=== PATIENT | female | born 1955 | race Caucasian/White ===

== ENCOUNTER 2018-05-11 06:45 | Inpatient (IN) | payer BC ==
--- NOTE | 2018-05-11 07:04 | EDPHY ---
H & P Stated Complaint: generalized skin rash,"red dot w/nenana aroun,"chopping bushes in the yard" Time Seen by Provider: 05/11/18 07:04 - Personal History Current Tetanus Diphtheria and Acellular Pertussis (TDAP): No - Medical/Surgical History Hx Asthma: No Hx Chronic Respiratory Disease: No Hx Diabetes: No Hx Cardiac Disease: No Hx Renal Disease: No Hx Cirrhosis: No Hx Alcoholism: No Hx HIV/AIDS: No Hx Splenectomy or Spleen Trauma: No Other PMH: HTN - Social History Smoking Status: Never smoked Constitutional: Initial Vital Signs Temperature (C) 36.6 C 05/11/18 06:48 Heart Rate 110 H 05/11/18 06:48 Respiratory Rate 19 05/11/18 06:48 Blood Pressure 201/76 H 05/11/18 06:48 O2 Sat (%) 95 05/11/18 06:48 O2 Delivery Mode Room Air Allergies/Adverse Reactions: peanut Allergy (Verified 05/11/18 06:51) soy Allergy (Verified 05/11/18 06:51) Medical Decision Making - Diagnostics Imaging Results: Imaging Impressions Extremity Venous Study 05/11/18 07:14 Impression: Nonvisualization of the peroneal veins with no visible deep vein thrombosis. Findings discussed with Eran Saravia MD 05/11/2018 at 830. ED Course/Re-evaluation: CHIEF COMPLAINT: Rash HISTORY OF PRESENT ILLNESS: The patient is a 62 y/o female complaining of a global rash, slow onset over the last week. Earlier this week, around Saturday or Saturday, she noticed a bruise on her left lower calf. She developed a rash encompassing the entirety of her left lower leg on , 3 days ago. Slowly the rash spread, until this morning, when she awoke, she realized it was encompassing most of her body. She reports the rash is itchy. She denies any facial swelling, difficulty breathing, fever, or other associated symptoms. She notes one red spot with a white nenana around it that may be a bite or sting. REVIEW OF SYSTEMS: A 10 point review of systems was performed and is negative with the exception of the elements mentioned in the history of present illness. PHYSICAL EXAM: HR, BP, O2 Sat, RR. Temp noted General Appearance: Alert, well hydrated, appropriate. Head: Atraumatic without scalp tenderness or obvious injury Nose: Atraumatic, no rhinorrhea, clear. Throat: There is no erythema or exudates, no lesions, normal tonsils, mucus membranes moist. Neck: Supple, nontender, no lymphadenopathy. Respiratory: No retractions, no distress, no wheezes, and no accessory muscle use. Lungs are clear to auscultation bilaterally. Cardiovascular: Regular rate and rhythm, no murmurs, rubs, or gallops. Bilateral carotid, radial, dorsalis pedis, and posterior tibial pulses intact. Good capillary refill all extremities. Gastrointestinal: Abdomen is soft, nontender, non-distended, no masses, no rebound, no guarding, no peritoneal signs. Musculoskeletal: Normal active ROM of all extremities, atraumatic. Neurological: Alert, appropriate, and interactive. Skin: Light red maculopapular regions that branch freely cover the abdomen, chest, back, neck, jaw, upper right leg, and sporadically on the arms bilaterally and right leg. The lower right leg is completely encompassed by a cellulitic, fiery red rash. The lower right leg is hard and warm to the touch. On the lateral side of the right lower leg, where her bruise was, is a scabbed, infected appearing lesion. Past medical history: Hypertension Past surgical history: Denies Family history: Non-contributory Social history: Lives in [place], PCP: Dr. Floresita Fleming, nonsmoker DIAGNOSTICS/PROCEDURES/CRITICAL CARE TIME: Study: Ultrasound of the left lower leg Indication: Hard, red, and painful lower left leg Results: US scan of the body parts was obtained. The results of the study are normal. The study was read by the radiologist, Dr. Rey. I viewed the images myself on the PACS system. DIFFERENTIAL DIAGNOSIS: The differential diagnosis for this patient's rash included cellulitis, allergic reaction, DVT, and angioedema. MEDICAL DECISION MAKING: The patient presents with a rash. Her left lower leg is swollen and completely encompassed by a cellulitic, fiery red rash. There is a lesion that appears scabbed and possibly infected on the lateral side of the calf. She reports this was a bruise but is unsure how she received it or when it transition to a scab. The calf is warm and hard to the touch. Her upper right leg, abdomen, chest, back, neck, and more moderately her arms bilaterally , right leg, and jaw are covered in light red maculopapular regions that micky freely. Plan for iSTAT, CBC, basic metabolic panel, ABG, coagulation panel, bilirubin, blood cultures, and ultrasound of the lower left leg to evaluate infectious causes and DVT possibilities. 1g Vancomycin, 40mg Pepcid, 125mg solumedrol, and 50mg Benadryl. 8:00 AM - Her blood glucose is in the mid 300s, indicating she may be an undiagnosed diabetic, putting her at further risk for infection. 8:30 AM - Her ultrasound is negative for DVT. Likely, the lower left leg swelling and redness are due to a cellulitic infection. I spoke with her regarding admission and she reluctantly agreed. 8:45 AM - I spoke with the hospitalist service regarding admission for this patient. Dr. Ji will be the admitting physician and the patient will go to Med-Surg. - Data Points Laboratory Results: Laboratory Results 05/11/18 07:10 05/11/18 07:10 05/11/18 05/11/18 05/11/18 07:27 07:10 07:10 WBC 7.59 10^3/uL 10^3/uL (3.80-9.50) RBC 5.60 10^6/uL H 10^6/uL (4.18-5.33) Hgb 17.1 g/dL H g/dL (12.6-16.3) POC Hgb 18.4 gm/dL H gm/dL (12.6-16.3) Hct 49.4 % H % (38.0-47.0) POC Hct 54 % H % (38-47) MCV 88.2 fL fL (81.5-99.8) MCH 30.5 pg pg (27.9-34.1) MCHC 34.6 g/dL g/dL (32.4-36.7) RDW 12.3 % % (11.5-15.2) Plt Count 178 10^3/uL 10^3/uL (150-400) MPV 13.0 fL H fL (8.7-11.7) Neut % (Auto) 56.1 % % (39.3-74.2) Lymph % (Auto) 26.9 % % (15.0-45.0) [place] % (Auto) 6.5 % % (4.5-13.0) Eos % (Auto) 10.1 % H % (0.6-7.6) Baso % (Auto) 0.3 % % (0.3-1.7) Nucleat RBC Rel Count 0.0 % % (0.0-0.2) Absolute Neuts (auto) 4.26 10^3/uL 10^3/uL (1.70-6.50) Absolute Lymphs (auto) 2.04 10^3/uL 10^3/uL (1.00-3.00) Absolute Monos (auto) 0.49 10^3/uL 10^3/uL (0.30-0.80) Absolute Eos (auto) 0.77 10^3/uL H 10^3/uL (0.03-0.40) Absolute Basos (auto) 0.02 10^3/uL 10^3/uL (0.02-0.10) Absolute Nucleated RBC 0.00 10^3/uL 10^3/uL (0-0.01) Immature Gran % 0.1 % % (0.0-1.1) Immature Gran # 0.01 10^3/uL 10^3/uL (0.00-0.10) PT 12.9 SEC SEC (12.0-15.0) INR 0.95 (0.83-1.16) APTT 23.3 SEC SEC (23.0-38.0) VBG Lactic Acid POC Sodium 135 mEq/L mEq/L (135-145) Sodium POC Potassium 3.5 mEq/L mEq/L (3.3-5.0) Potassium POC Chloride 97 mEq/L mEq/L (97-110) Chloride Carbon Dioxide Anion Gap POC BUN 24 mg/dL H mg/dL (7-23) BUN Creatinine POC Creatinine 0.8 mg/dL mg/dL (0.6-1.0) Estimated GFR Glucose POC Glucose 363 mg/dL H mg/dL (70-100) Calcium Total Bilirubin 05/11/18 05/11/18 07:10 07:10 WBC RBC Hgb POC Hgb Hct POC Hct MCV MCH MCHC RDW Plt Count MPV Neut % (Auto) Lymph % (Auto) [place] % (Auto) Eos % (Auto) Baso % (Auto) Nucleat RBC Rel Count Absolute Neuts (auto) Absolute Lymphs (auto) Absolute Monos (auto) Absolute Eos (auto) Absolute Basos (auto) Absolute Nucleated RBC Immature Gran % Immature Gran # PT INR APTT VBG Lactic Acid 1.7 mmol/L mmol/L (0.7-2.1) POC Sodium Sodium 133 mEq/L L mEq/L (135-145) POC Potassium Potassium 3.8 mEq/L mEq/L (3.3-5.0) POC Chloride Chloride 99 mEq/L mEq/L (97-110) Carbon Dioxide 22 mEq/l mEq/l (22-31) Anion Gap 12 mEq/L mEq/L (8-16) POC BUN BUN 23 mg/dL mg/dL (7-23) Creatinine 0.8 mg/dL mg/dL (0.6-1.0) POC Creatinine Estimated GFR > 60 Glucose 340 mg/dL H mg/dL (70-100) POC Glucose Calcium 9.3 mg/dL mg/dL (8.5-10.4) Total Bilirubin 0.6 mg/dL mg/dL (0.1-1.4) Medications Given: Discontinued Medications Diphenhydramine HCl (Benadryl Injection) 50 mg IVP EDNOW ONE Stop: 05/11/18 07:13 Last Admin: 05/11/18 07:55 Dose: 50 mg Famotidine (Pepcid) 40 mg IVP EDNOW ONE Stop: 05/11/18 07:13 Last Admin: 05/11/18 07:58 Dose: 40 mg Vancomycin/Sodium Chloride (Vancomycin 1 Gm (Premix)) 250 mls @ 250 mls/hr IV EDNOW ONE PRN Reason: Protocol Stop: 05/11/18 08:12 Last Admin: 05/11/18 07:58 Dose: 250 mls Methylprednisolone Sodium Succinate (Solu-Medrol) 125 mg IVP EDNOW ONE Stop: 05/11/18 07:13 Last Admin: 05/11/18 07:54 Dose: 125 mg Point of Care Test Results: Chemistry 05/11/18 07:27 POC Sodium 135 mEq/L mEq/L (135-145) POC Potassium 3.5 mEq/L mEq/L (3.3-5.0) POC Chloride 97 mEq/L mEq/L (97-110) POC BUN 24 mg/dL H mg/dL (7-23) POC Creatinine 0.8 mg/dL mg/dL (0.6-1.0) POC Glucose 363 mg/dL H mg/dL (70-100) ISTAT H&H 05/11/18 07:27 POC Hgb 18.4 gm/dL H gm/dL (12.6-16.3) POC Hct 54 % H % (38-47) Departure - Departure Disposition: [facility] Inpatient Acute Clinical Impression: Newly diagnosed diabetes, Rash Cellulitis Qualifiers: Site of cellulitis: extremity Site of cellulitis of extremity: lower extremity Laterality: left Qualified Code(s): L03.116 - Cellulitis of left lower limb Condition: Fair Referrals: FLORESITA FLEMING [Primary Care Provider] - As per Instructions Report Scribed for: Eran Saravia Report Scribed by: Loan Guillen Date of Report: 05/11/18 Time of Report: 07:51
[2018-05-11] MEDS ORDERED: methylPREDNISolone SOD SUCC 125 MG/2 ML VIAL IVP ONE (07:12)
[2018-05-11] MEDS ORDERED: FAMOTIDINE 20 MG/2 ML SDV IVP ONE (07:12)
[2018-05-11] MEDS ORDERED: VANCOMYCIN HCL/NORMAL SALINE 250 ML IV ONE (07:13)
[2018-05-11 07:31] LABS: PLATELET COUNT 178 10^3/uL (150-400)
[2018-05-11 07:44] LABS: INR 0.95 (0.83-1.16); PROTIME(PATIENT) 12.9 SEC (12.0-15.0)
[2018-05-11] MEDS ORDERED: D50W 25 GM/50 ML SYR IVP PRN (09:00)
[2018-05-11] MEDS ORDERED: HYDROmorphONE/DILAUDID 1 MG/ML INJ IVP PRN (09:01)
[2018-05-11] MEDS ORDERED: ONDANSETRON 4 MG/2 ML VIAL IVP PRN (09:01)
[2018-05-11] MEDS ORDERED: ACETAMINOPHEN 325 MG TAB PO PRN (09:01)
[2018-05-11] MEDS ORDERED: HYDROCODONE/APAP 5/325 TAB PO PRN (09:01)
[2018-05-11] MEDS ORDERED: ONDANSETRON DISINTEGRATING 4 MG TAB PO PRN (09:01)
--- NOTE | 2018-05-11 12:13 | PDGENHP ---
History and Physical - Chief Complaint leg pain, redness, rash - History of Present Illness 62 yo female with recent diagnosis of diabetes presents to ED with rash. 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 This then spread to her back and also her RLE, which was confluent. In addition, her proximal thighs and groin area area are affected. She initially had significant pruritis. She tried calamine lotion and hydrogen peroxide, which she has been applying to her anterior right downing for several days. She awoke this morning with severe itching. Three weeks ago, she hit her right anterior downing on the corner of a dresser, but did not break the skin. However, after onset of the rash, this area opened and began oozing yellow drainage, she denies pus. She denies fevers , chills or rigors. In the ED, blood cultures were drawn and she was given IV benadryl, pepcid, and solumedrol for possible allergic component. She received a dose of vancomycin for presumed cellulitis and is admitted to the hospital for further management. History Information - Allergies/Home Medication List Allergies/Adverse Reactions: peanut Allergy (Verified 05/11/18 06:51) soy Allergy (Verified 05/11/18 06:51) Home Medications: NK [No Known Home Meds] 05/11/18 [Last Taken Unknown] I have personally reviewed and updated: family history, medical history, social history, surgical history - Past Medical History diabetes type 2 Additional medical history: Recently diagnosed DM, not on meds - Surgical History Reports: no pertinent surgical hx - Family History Positive for: non-pertinent - Social History Smoking Status: Never smoked Alcohol Use: Other (daily wine, 1-2 glasses) Drug Use: None Additional social history: 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 Review of Systems Review of Systems: ROS: 10pt was reviewed & negative except for what was stated in HPI & below Physical Exam Physical Exam: Temp Pulse Resp BP Pulse Ox 36.8 C 84 20 144/69 H 94 05/11/18 11:14 05/11/18 11:14 05/11/18 11:14 05/11/18 11:14 05/11/18 11:14 Constitutional: no apparent distress Eyes: PERRL Ears, Nose, Mouth, Throat: moist mucous membranes Cardiovascular: regular rate and rhythym Respiratory: no respiratory distress, clear to auscultation Gastrointestinal: normoactive bowel sounds, soft, non-tender abdomen Skin: warm, rash, other (RLE with confluent erythema and edema with satellite lesions and b/l inner thighs with more confluent erythema. Diffuse maculopapular rash with excoriations on b/l extremities and trunk) Musculoskeletal: full muscle strength Neurologic: AAOx3 Psychiatric: interacting appropriately Lab Data & Imaging Review 05/11/18 07:10 05/11/18 07:10 WBC 7.59 10^3/uL (3.80-9.50) 05/11/18 07:10 RBC 5.60 10^6/uL (4.18-5.33) H 05/11/18 07:10 Hgb 17.1 g/dL (12.6-16.3) H 05/11/18 07:10 POC Hgb 18.4 gm/dL (12.6-16.3) H 05/11/18 07:27 Hct 49.4 % (38.0-47.0) H 05/11/18 07:10 POC Hct 54 % (38-47) H 05/11/18 07:27 MCV 88.2 fL (81.5-99.8) 05/11/18 07:10 MCH 30.5 pg (27.9-34.1) 05/11/18 07:10 MCHC 34.6 g/dL (32.4-36.7) 05/11/18 07:10 RDW 12.3 % (11.5-15.2) 05/11/18 07:10 Plt Count 178 10^3/uL (150-400) 05/11/18 07:10 MPV 13.0 fL (8.7-11.7) H 05/11/18 07:10 Neut % (Auto) 56.1 % (39.3-74.2) 05/11/18 07:10 Lymph % (Auto) 26.9 % (15.0-45.0) 05/11/18 07:10 [place] % (Auto) 6.5 % (4.5-13.0) 05/11/18 07:10 Eos % (Auto) 10.1 % (0.6-7.6) H 05/11/18 07:10 Baso % (Auto) 0.3 % (0.3-1.7) 05/11/18 07:10 Nucleat RBC Rel Count 0.0 % (0.0-0.2) 05/11/18 07:10 Absolute Neuts (auto) 4.26 10^3/uL (1.70-6.50) 05/11/18 07:10 Absolute Lymphs (auto) 2.04 10^3/uL (1.00-3.00) 05/11/18 07:10 Absolute Monos (auto) 0.49 10^3/uL (0.30-0.80) 05/11/18 07:10 Absolute Eos (auto) 0.77 10^3/uL (0.03-0.40) H 05/11/18 07:10 Absolute Basos (auto) 0.02 10^3/uL (0.02-0.10) 05/11/18 07:10 Absolute Nucleated RBC 0.00 10^3/uL (0-0.01) 05/11/18 07:10 Immature Gran % 0.1 % (0.0-1.1) 05/11/18 07:10 Immature Gran # 0.01 10^3/uL (0.00-0.10) 05/11/18 07:10 PT 12.9 SEC (12.0-15.0) 05/11/18 07:10 INR 0.95 (0.83-1.16) 05/11/18 07:10 APTT 23.3 SEC (23.0-38.0) 05/11/18 07:10 VBG Lactic Acid 1.7 mmol/L (0.7-2.1) 05/11/18 07:10 POC Sodium 135 mEq/L (135-145) 05/11/18 07:27 Sodium 133 mEq/L (135-145) L 05/11/18 07:10 POC Potassium 3.5 mEq/L (3.3-5.0) 05/11/18 07:27 Potassium 3.8 mEq/L (3.3-5.0) 05/11/18 07:10 POC Chloride 97 mEq/L (97-110) 05/11/18 07:27 Chloride 99 mEq/L (97-110) 05/11/18 07:10 Carbon Dioxide 22 mEq/l (22-31) 05/11/18 07:10 Anion Gap 12 mEq/L (8-16) 05/11/18 07:10 POC BUN 24 mg/dL (7-23) H 05/11/18 07:27 BUN 23 mg/dL (7-23) 05/11/18 07:10 Creatinine 0.8 mg/dL (0.6-1.0) 05/11/18 07:10 POC Creatinine 0.8 mg/dL (0.6-1.0) 05/11/18 07:27 Estimated GFR > 60 05/11/18 07:10 Glucose 340 mg/dL (70-100) H 05/11/18 07:10 POC Glucose 346 mg/dL (70-100) H 05/11/18 11:40 Calcium 9.3 mg/dL (8.5-10.4) 05/11/18 07:10 Total Bilirubin 0.6 mg/dL (0.1-1.4) 05/11/18 07:10 C-Reactive Protein 28.8 mg/L (<10.0) H 05/11/18 07:10 Procalcitonin 0.14 ng/mL (0.02-0.10) H 05/11/18 07:10 Assessment & Plan Assessment: LLE cellulitis - occurred after traumatic injury 3 weeks ago. Wound culture from left anterior downing sent, f/u gram stain. Continue Vancomycin while awaiting Cx data, BCx's also pending. Trend CRP. ID consult requested. Diffuse rash - unclear if this is a disseminated reaction related to LE cellulitis (?strep) or if she is having an allergic reaction. She did apply calamine and hydrogen peroxide, either of which may have caused an allergy. Will give q6h benadryl, bid pepcid and oral prednisone, acknowledging the latter may contribute to elevated blood sugars. DM type 2 - new diagnosis, not on treatment. Send a1c to assess overall control. Start low dose Lantus plus ACHS sliding scale insulin, consider metformin at d/c. Alcohol use - reports 1-2 glasses of wine daily, monitor for signs of withdrawal. Full code DVT PPLX - Lovenox Dispo - inpt, anticipate >48 hrs hospitalization for ongoing management of cellulitis and possible allergic reaction
[2018-05-11] MEDS: INSULIN LISPRO 100 UNIT/ML SC SCH ×4 (12:42→22:51)
--- NOTE | 2018-05-11 16:50 | ASMTCMCOM ---
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 No therapies are ordered, unclear if she will need IV abx, CM w/f. DC Plan: TBD Date Signed: 05/11/2018 04:50 PM Electronically Signed By:Pat Ramirez RN
--- NOTE | 2018-05-11 17:28 | PDMN ---
Medical Necessity Medical necessity: MCG: M70 Cellulitis: 62 y/o presents with LLE cellulitis and diffuse rash r/t strep cellulitis vs. allergy. IV antibx started (Vanco). wound Cx and BC pending. ID consult. Hypertensive SBP 201, BG 363, hx diabetes. Anticipate >2MN for ongoing management of cellulitis and possibler allergic reaction.
--- NOTE | 2018-05-11 18:22 | GCON ---
[f rep st] CONSULTATION INPATIENT INFECTIOUS DISEASE CONSULTATION REFERRING PHYSICIAN: Lady Ji MD REASON FOR REFERRAL: Left lower extremity cellulitis and systemic pruritic rash. HISTORY OF PRESENT ILLNESS: The patient is a 62-year-old female with essentially negative past medic al history, who presented to [facility] Emergency Room with inflammation of her left lo wer extremity as well as a new onset full body rash that developed over her arms, back, and legs. Th e patient relates that 3 weeks ago she hit her left downing on the corner of a chest, but it did not candy ak the skin, but did cause a swelling in the area. The patient noticed that this localized area lorena me more inflamed and began oozing a yellow clear drainage. Erythema that was confluent developed juan c und this area on the leg and now at presentation, she has a fully-confluent erythema from the knee di stal on the left side. The patient denied any fever, chills, or rigors with this. Approximately 4 d ays ago, she began developing a highly-pruritic macular rash over her entire trunk as well as her rig ht lower extremity and bilateral upper extremities. She has been using calamine lotion to decrease t he itching. The patient was seen in the emergency room. Blood cultures were drawn and she was start ed on IV vancomycin. She was also given IV Benadryl, Pepcid, and Solu-Medrol for potential allergic response, although she had not taken any medications prior to this response. Currently, she is resti ng in her hospital bed. Her symptoms of pruritus are improved after the medications. PAST MEDICAL HISTORY: Recently-diagnosed glucose intolerance, possible diabetes mellitus. She is no t on medications. PAST SURGICAL HISTORY: Negative. ANTIBIOTICS: Vancomycin. ALLERGIES: The patient is allergic to soy and peanuts. SOCIAL HISTORY: [place] She has no tobacco use. Patient does drink 1-2 glasses of wine daily. No drug use. 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 FAMILY HISTORY: Reviewed, but noncontributory. REVIEW OF SYSTEMS: Other than that detailed above in History of Present Illness, a comprehensive 10- system review is negative. PHYSICAL EXAMINATION: VITAL SIGNS: Temperature maximum is 36.8, temperature current is 36.7, heart rate is 99, respiratory rate is 12, blood pressure is 138/73. GENERAL: The patient is a well-formed , well-nourished female in no acute distress. She is not toxic in appearance. She is alert and orie nted x3. She is pleasant in demeanor. HEENT: Normocephalic for age. Atraumatic. No scleral icter us. No oral lesion or drainage from the nares. EYES: Lids and conjunctivae are within normal limits . Pupils are equal and round bilaterally. NECK: Supple. No meningismus. LUNGS: Clear to auscult ation bilaterally with good effort. HEART: Regular rate and rhythm. No significant murmur, rub, or gallop. No significant peripheral edema. SKIN: Warm and dry to the touch. The patient does have a confluent erythematous rash from the knee distal to the ankle on the left lower extremity. Patient also has a macular rash with irregular distribution over all 4 limbs as well as her back. This is a pruritic rash. MUSCULOSKELETAL: No other muscle belly tenderness is noted. No joint line effusion or arthritis seen. NEURO: Cranial nerves 2-12 seem to be intact. Peripheral sensation seems intact in extremities. LABORATORY DATA: The patient has a CBC dated 05/11/2018, shows white blood cell count of 7.6, hemogl obin of 17.1, hematocrit of 49.4, platelet count of 178, differentials within normal limits. Serum c hemistries on 05/11/2018, show sodium of 135, potassium 3.5, chloride of 97, bicarbonate of 22, BUN o f 24, creatinine 0.8. Glucose levels have been measured in the 300s at checks today. C-reactive pro tein is elevated at 28.8. Procalcitonin is 0.14. MICROBIOLOGIC DATA: Patient has blood cultures dated 05/11/2018, which are pending. Leg swab dated 05/11/2018, is also pending. ASSESSMENT: 1. Left lower extremity cellulitis secondary to a minor trauma which occurred a couple of weeks ago. This is currently covered with monotherapy with vancomycin, although the patient has no history of any antibiotic use nor resistant bacterial infections nor significant healthcare exposure. I think w tatiana will change this antibiotic from vancomycin to intravenous cefazolin 2 g q.8 hours. 2. Full body rash that is pruritic, which occurred on the heels of this infectious presentation in h er left lower extremity. This is most consistent with an id reaction. We can use Benadryl and anti inflammatories to manage symptoms, but this should clear up as we are treating the primary infection. PLAN: 1. Discontinue vancomycin. 2. Start Ancef 2 g IV q.8 hours. 3. Antihistamines and anti-inflammatories p.r.n. secondary to pruritic rash due to id reaction. /[id number]/MODL
[2018-05-11] MEDS ORDERED: VANCOMYCIN 1 GM in NS 250 ML IV SCH (20:00)
[2018-05-11] MEDS ORDERED: INSULIN GLARGINE 100 UNITS/ML UNIT SC SCH (21:00)
[2018-05-11] MEDS: FAMOTIDINE 20 MG TAB PO SCH (22:51)
[2018-05-11] MEDS: ceFAZolin 2 GM/DEXTROSE 100 ML IV SCH (22:51)
[2018-05-12] MEDS: ceFAZolin 2 GM/DEXTROSE 100 ML IV SCH ×3 (05:21→22:25)
[2018-05-12] MEDS: FAMOTIDINE 20 MG TAB PO SCH ×2 (07:48→20:00)
[2018-05-12] MEDS: predniSONE 20 MG TAB PO SCH (07:48)
[2018-05-12] MEDS: INSULIN LISPRO 100 UNIT/ML SC SCH ×4 (07:49→22:25)
--- NOTE | 2018-05-12 10:51 | HOSPPROG ---
Hospitalist Progress Note Assessment/Plan: Patient is a 62 yo female with recent diagnosis of diabetes presents to ED with rash. 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 This then spread to her back and also her RLE, which was confluent. In addition, her proximal thighs and groin area area are affected. She initially had significant pruritus. She also had a minor trauma to her left leg a few weeks ago. *LLE cellulitis -Ancef -secondary to a minor trauma *Diffuse rash -consistent with "ID reaction" (she has an acute rash after getting and infection) Much better with treatment of antihistamines. Will give q6h benadryl, bid pepcid and oral prednisone, acknowledging the latter may contribute to elevated blood sugars. -appreciate ID DM type 2 - new diagnosis, not on treatment -A1c is 14.6, will increase Lantus and continue sliding scale -will ask nursing staff to teach her how to check glucoses -will place on an ADA diet, ask dietary to see Alcohol use - reports 1-2 glasses of wine daily, monitor for signs of withdrawal. Full code DVT PPLX - Lovenox Dispo - pending Subjective: Christine dugan said her rash is better, has less itching. Objective: Vital Signs Temp Pulse Resp BP Pulse Ox 36.4 C 84 18 146/63 H 94 05/12/18 07:33 05/12/18 07:33 05/12/18 07:33 05/12/18 07:33 05/12/18 07:33 Microbiology 05/11/18 13:00 Gram Stain - Final Leg - Swab 05/11/18 05/12/18 05/13/18 05:59 05:59 05:59 Intake Total 1650 Balance 1650 PT 12.9 SEC (12.0-15.0) 05/11/18 07:10 INR 0.95 (0.83-1.16) 05/11/18 07:10 - Physical Exam Constitutional: no apparent distress, appears nourished, uncomfortable Eyes: PERRL Ears, Nose, Mouth, Throat: hearing normal Cardiovascular: regular rate and rhythym Respiratory: no respiratory distress Gastrointestinal: normoactive bowel sounds Skin: warm, other (diffuse confluent rash scattered all over, not involving her eyes, mouth or vaginal area) Musculoskeletal: full muscle strength Neurologic: AAOx3 Psychiatric: interacting appropriately ICD10 Worksheet Patient Problems: Problems Problem Status Onset Cellulitis Acute Newly diagnosed diabetes Acute Rash Acute
--- NOTE | 2018-05-12 20:07 | PCMIDPN ---
Assessment/Plan: Assessment/Plan: * Left lower extremity cellulitis: Clinically improving with cefazolin and elevation. Anticipate may be able to change to oral antibiotic therapy in next 24-48 hours. * Diffuse rash: Agree may represent an id reaction/autoeczemation. Responding to antihistamines and prednisone. Continue to follow. 05/12/18 20:04 Subjective: Patient notes significant decrease in left lower extremity pain and redness. Pruritis markedly decreased. Objective: Vital Signs Temp Pulse Resp BP Pulse Ox 36.6 C 68 16 137/43 H 91 L 05/12/18 19:46 05/12/18 19:46 05/12/18 19:46 05/12/18 19:46 05/12/18 19:46 Microbiology 05/11/18 13:00 Gram Stain - Final Leg - Swab 05/11/18 05/12/18 05/13/18 05:59 05:59 05:59 Intake Total 1650 Balance 1650 C-Reactive Protein 22.6 mg/L (<10.0) H 05/12/18 04:38 Cefazolin # 1, antibiotics # 2 Blood cultures x2 no growth Wound culture mixed cutaneous carlos - Physical Exam General Appearance: alert, no apparent distress EENT: No scleral icterus, No conjunctival petechiae Respiratory: lungs clear, No respiratory distress Cardiac/Chest: regular rate, rhythm Extremities: inflammation (Left lower extremity with less intense erythema from knee to foot; crusting over anterior downing without purulence; mildly warm; nontender) Abdomen: non-tender, No distended Skin: rash (Diffuse erythematous plaques over extremities, abdomen, trunk and back) ICD10 Worksheet Patient Problems: Problems Problem Status Onset Cellulitis Acute Newly diagnosed diabetes Acute Rash Acute
[2018-05-12] MEDS ORDERED: INSULIN GLARGINE 100 UNITS/ML UNIT SC SCH (21:00)
[2018-05-13] MEDS: ceFAZolin 2 GM/DEXTROSE 100 ML IV SCH ×2 (06:16→14:15)
[2018-05-13] MEDS: FAMOTIDINE 20 MG TAB PO SCH (07:49)
[2018-05-13] MEDS: predniSONE 20 MG TAB PO SCH (07:49)
[2018-05-13] MEDS: INSULIN LISPRO 100 UNIT/ML SC SCH ×2 (07:49→12:01)
--- NOTE | 2018-05-13 10:32 | HOSPPROG ---
Hospitalist Progress Note Assessment/Plan: Patient is a 62 yo female with recent diagnosis of diabetes presents to ED with rash. 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 This then spread to her back and also her RLE, which was confluent. In addition, her proximal thighs and groin area area are affected. She initially had significant pruritus. She also had a minor trauma to her left leg a few weeks ago. *LLE cellulitis -Ancef -secondary to a minor trauma -looks much improved *Diffuse rash -consistent with "ID reaction" (she has an acute rash after getting and infection) Much better with treatment of antihistamines. Will give q6h Benadryl, bid pepcid and oral prednisone, acknowledging the latter may contribute to elevated blood sugars. -appreciate ID DM type 2 - new diagnosis, not on treatment -A1c is 14.6, increased Lantus and continue sliding scale -nursing staff is teaching her how to check glucoses and give herself insulin -ADA diet, appreciate dietary seeing her -she is calling her PCP this morning for close f/u this week Alcohol use - reports 1-2 glasses of wine daily, monitor for signs of withdrawal. Full code DVT PPLX - Lovenox Dispo - pending Subjective: Christine Coello is feeling much better today. Objective: Vital Signs Temp Pulse Resp BP Pulse Ox 36.6 C 53 L 16 151/54 H 96 05/13/18 07:44 05/13/18 07:44 05/13/18 07:44 05/13/18 07:44 05/13/18 07:44 Microbiology 05/11/18 13:00 Gram Stain - Final Leg - Swab 05/12/18 05/13/18 05/14/18 05:59 05:59 05:59 Intake Total 1650 Balance 1650 PT 12.9 SEC (12.0-15.0) 05/11/18 07:10 INR 0.95 (0.83-1.16) 05/11/18 07:10 - Physical Exam Constitutional: no apparent distress, appears nourished, not in pain Eyes: PERRL Ears, Nose, Mouth, Throat: hearing normal Respiratory: no respiratory distress Skin: warm, other (rash is widespread, but less red, decreasing in size, patient is having less itching; Left lower ext cellulitis much improved, less red, less swelling) Musculoskeletal: full muscle strength Neurologic: AAOx3 Psychiatric: interacting appropriately ICD10 Worksheet Patient Problems: Problems Problem Status Onset Cellulitis Acute Newly diagnosed diabetes Acute Rash Acute
--- NOTE | 2018-05-13 11:28 | PCMIDPN ---
Assessment/Plan: LLE cellulitis: this is my first day, but reportedly much improved, micro data negative, very small area of residual erythema remains --ok to dc on keflex 500mg PO TID x 7 more days --no ID f/u needed Rash: improved Subjective: patient states her erythema RLE better as well as rash no other side effects to antibiotics Objective: Vital Signs Temp Pulse Resp BP Pulse Ox 36.6 C 53 L 16 151/54 H 96 05/13/18 07:44 05/13/18 07:44 05/13/18 07:44 05/13/18 07:44 05/13/18 07:44 Microbiology 05/11/18 13:00 Gram Stain - Final Leg - Swab Wound Culture - Final 05/12/18 05/13/18 05/14/18 05:59 05:59 05:59 Intake Total 1650 Balance 1650 C-Reactive Protein 22.6 mg/L (<10.0) H 05/12/18 04:38 - Physical Exam General Appearance: alert, no apparent distress Respiratory: No accessory muscle use Neck: supple Cardiac/Chest: regular rate, rhythm Extremities: erythema (small area L anterior downing) Skin: rash (faint MP eruption remains) Neuro/Psych: alert, normal mood/affect, oriented x 3 ICD10 Worksheet Patient Problems: Problems Problem Status Onset Cellulitis Acute Newly diagnosed diabetes Acute Rash Acute
[2018-05-13 11:54] VITALS: BP 143/57
--- NOTE | 2018-05-13 15:03 | GDS ---
[f rep st] DISCHARGE SUMMARY DISCHARGE DIAGNOSES: 1. Left lower extremity cellulitis. 2. Diffuse rash consistent with ID reaction. 3. Diabetes, likely type 2, new diagnosis with an A1c of 14.6. 4. Alcohol use. CONSULTATION: Dr. Eran Chavez. BRIEF HISTORY: The patient is a 62-year-old woman with recent diagnosis of diabetes who presented to the emergency room with rash. She developed a rash on her arms 4 days prior to her admission. Then it spread to her back and then to her right lower extremity, which was confluent. It hit involved h er proximal thighs and groin areas. She had hurt her left leg and had a injury to her left downing that was open. She was seen and evaluated by the infectious disease team, who noted that her rash was mo st consistent with an ID reaction. She improved with treating her primary infection. She was also t reated with Benadryl, Pepcid, and prednisone. Her antibiotics were initially vancomycin, but then th is was changed to cefazolin. She is markedly improved. She will be discharged home on Keflex for 7 more days. HOSPITAL COURSE: 1. Left lower extremity cellulitis, markedly improved with treatment. 2. Diffuse red rash. She was given Benadryl every 6 hours, Pepcid, and prednisone, much improved, b ut has also increased her blood sugars. 3. Diabetes, type 2. An A1c was checked, it was 14.6. We had the dietitian see her. She is on an ADA diet. Nursing staff has worked diligently with her in regard to sliding scale and signs and symp toms of hyperglycemia and hypoglycemia. 4. Alcohol use. She reports 1-2 glasses of wine daily. She had no signs or symptoms of any type of withdrawal symptoms. DISCHARGE CONDITION: Stable. Blood pressure is 143/57, heart rate is 68, respiratory rate is 16, O2 saturation on room air 92%, temperature 37.1 Celsius. DISCHARGE MEDICATIONS: Please see the EMR. DISCHARGE INSTRUCTIONS: 1. To set an appointment with an power builder developer prior to discharge. We have given her several name s. 2. To take the Lantus at night and then to continue the sliding scale. 3. Continue Pepcid twice daily until rash is almost completely resolved. 4. Take the prednisone as instructed in the morning with meals. 5. Use Benadryl if she should start itching. 6. Continue ADA diet. Greater than 30 minutes discharging and coordinating the patient's care. Copy requested to: Dr. Floresita Melton /[id number]/MODL
--- NOTE | 2018-05-13 15:22 | ASDISCHSUM ---
Discharge Information Plan Status:Home with No Needs Medically Cleared to Leave:05/13/2018 Discharge Date:05/13/2018 CM D/C Disposition:Home, Routine, Self-Care ADT D/C Disposition: Projected Discharge Date:05/13/2018 Transportation at D/C:Self Discharge Delay Reason: Follow-Up Date:05/13/2018 Discharge Slot: Final Diagnosis: Placement Information Patient Contact Information Contact Name:DEL Relationship:Oma Address: Work Phone: City:[email or web address] Alternate Phone: [place] Email: Financial Information Financial Class:BCOP Primary Plan Desc:BC OUT OF STATE PPO Primary Plan Number:[id number] Secondary Plan Desc: Secondary Plan Number: Assessment Information BC CM Progress Note CM Note CM Note Notes: 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 No therapies are ordered, unclear if she will need IV abx, CM w/f. DC Plan: TBD Date Signed: 05/11/2018 04:50 PM Electronically Signed By:Pat Ramirez RN Case Management Discharge Plan Note Case Management Discharge Discharge Order Complete? Answers: Yes Patient to Obtain Answers: Independently Medications Transportation Arranged Answers: Other Notes: Pt's car is here at hospital Discharge Comments Notes: Pt is discharging home today with no CM needs. She has a new DM2 dx and was provided with a glucometer for RN teaching. Pt drove herself to the ED and feels comfortable driving herself home. She has a friend available for support at home if needed. Date Signed: 05/13/2018 03:21 PM Electronically Signed By:Shelli Mallory MODERN AND CONTEMPORARY ART CURATOR Intervention Information
--- NOTE | 2018-05-13 15:23 | ASMTLACE ---
LACE Length of stay for Answers: 2 days current admission Acuity / Level of Answers: Yes Care: Did the patient have an inpatient admission? Comorbidities - select Answers: Diabetes (uncontrolled or all that apply controlled) # of Emergency department Answers: 1-2 visits in the last 6 months Score: 7 Date Signed: 05/13/2018 03:22 PM Electronically Signed By:DAYANARA Joe
== END 2018-05-13 16:15 | disposition home or self-care (01) | DRG 603 ==
LOC: OBSVTOIN 08:59 → F3E 09:41
PROVIDERS: ADMIT Hospitalist; ATTEND Hospitalist
DX: L03.116 Cellulitis of left lower limb (principal); B96.89 Other specified bacterial agents as the cause of diseases classified elsewhere; L30.2 Cutaneous autosensitization; E11.9 Type 2 diabetes mellitus without complications; Z72.89 Other problems related to lifestyle
CPT/HCPCS: 82435-PO; 82565-PO; 82947-PO; 84132-PO; 84295-PO; 84520-PO; 85014-PO; 96365; J0690; J1200; J1815; J2930; J3370; J7512

== ENCOUNTER 2018-08-26 05:48 | Day surgery (SDC) | payer BC ==
[2018-08-26] MEDS ORDERED: LR 1,000 ML IV ONE (06:03)
[2018-08-26] MEDS ORDERED: LIDOCAINE 1% 2 ML INJ ID PRN (06:03)
[2018-08-26] MEDS ORDERED: MIDAZOLAM 2 MG/2 ML VIAL IVP ONE (07:02)
--- NOTE | 2018-08-26 07:02 | PDANEPAE ---
ANE History of Present Illness here for hysteroscopy ANE Past Medical History - Cardiovascular History Hx Hypertension: No Hx Arrhythmias: No Hx Chest Pain: No Hx Coronary Artery / Peripheral Vascular Disease: No Hx CHF / Valvular Disease: No Hx Palpitations: No - Pulmonary History Hx COPD: No Hx Asthma/Reactive Airway Disease: No Hx Recent Upper Respiratory Infection: No Hx Oxygen in Use at Home: No Hx Sleep Apnea: No Sleep Apnea Screening Result - Last Documented: Negative - Neurologic History Hx Cerebrovascular Accident: No Hx Seizures: No Hx Dementia: No - Endocrine History Hx Diabetes: Yes Endocrine History Comment: NIDDM MANAGES WITH DIET. FLARED DURING CELLULITS 2017. HGB A1C LEVELS ARE COMING DOWN. 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 CELLULITIS LT LOWER LEG 04/2018 NOW RESOLVED - Chronic Pain History Chronic Pain: No - Surgical History Prior Surgeries: KALEB CATARACT ANE Review of Systems Review of systems is: negative Review of Systems: - Exercise capacity Exercise capacity: >=4 METS METS (RN): 5 METS ANE Patient History - Allergies Allergies/Adverse Reactions: peanut Allergy (Verified 08/26/18 06:44) SEVERE NAUSEA soy Allergy (Verified 08/26/18 06:44) SKIN RASHES - Home Medications Home medications: home medication list seen and reviewed Home Medications: Insulin Lispro [HumaLOG LISPRO] 0 unit SC PRN 07/25/18 [Last Taken Unknown] - NPO status NPO Status: no food or drink >8 hours NPO Since - Liquids (Date): 08/26/18 NPO Since - Liquids (Time): 03:30 NPO Since - Solids (Date): 08/25/18 NPO Since - Solids (Time): 23:00 - Anes Hx Anes Hx: no prior problems - Smoking Hx Smoking Status: Never smoked ANE Labs/Vital Signs - Vital Signs Vital Signs: reviewed preoperatively; see RN documention for details Blood Pressure: 168/65 Heart Rate: 66 Respiratory Rate: 18 O2 Sat (%): 97 Height: 163.83 cm Weight: 71.668 kg ANE Physical Exam - Airway Neck exam: FROM Mallampati Score: Class 1 - Pulmonary Pulmonary: no respiratory distress - Cardiovascular Cardiovascular: regular rate and rhythym - ASA Status ASA Status: II ANE Anesthesia Plan Anesthesia Plan: GA with mask
[2018-08-26] MEDS ORDERED: ALBUTEROL 3 ML DEYVIAL IH PRN (07:03)
[2018-08-26] MEDS ORDERED: HYDROCODONE/APAP 5/325 TAB PO PRN (07:03)
[2018-08-26] MEDS ORDERED: HYDROmorphONE/DILAUDID 2 MG/ML INJ IVP PRN (07:03)
[2018-08-26] MEDS ORDERED: oxyCODONE IR 5 MG TAB PO PRN (07:03)
[2018-08-26] MEDS ORDERED: DEXAMETHASONE 4 MG/ML VIAL IVP PRN (07:03)
[2018-08-26] MEDS ORDERED: ONDANSETRON 4 MG/2 ML VIAL IVP PRN (07:03)
[2018-08-26] MEDS ORDERED: ACETAMINOPHEN 500 MG TAB PO PRN (07:03)
[2018-08-26] MEDS ORDERED: fentaNYL 100 MCG/2 ML INJ IVP PRN (07:03)
[2018-08-26] MEDS ORDERED: NALOXONE HCL 0.4 MG/ML INJ IVP PRN (07:03)
[2018-08-26] MEDS ORDERED: PROPOFOL/EMULSION 500 MG/50 ML BOTTLE IV ONE (07:10)
--- NOTE | 2018-08-26 07:19 | PDHPUP ---
History & Physical Update H&P update statement: This history and physical update is based on an assessment of the patient which was completed after admission or registration (within 24 hours), but prior to the surgery/procedure. H&P update: H&P reviewed & patient examined, no change in patient's condition since H&P completed
[2018-08-26] MEDS ORDERED: fentaNYL 100 MCG/2 ML INJ ONE (07:20)
[2018-08-26] MEDS ORDERED: PROPOFOL 200 MG/20 ML VIAL ONE (07:58)
[2018-08-26] MEDS ORDERED: SILVER SULFADIAZINE 50 GM JAR TP ONE (08:22)
[2018-08-26] MEDS ORDERED: KETOROLAC 30 MG/1 ML SDV ONE (08:24)
--- NOTE | 2018-08-26 08:41 | POSTANESTH ---
Post Anesthetic Evaluation Cardiovascular Status: Normal, Stable Respiratory Status: Normal, Stable Level of Consciousness/Mental Status: Can Participate in Eval Pain Control: Adequate, Prn Tx Ordered Nausea/Vomiting Control: Adequate, Prn Tx Ordered Complications Possibly Related to Anesthesia: None Noted
--- NOTE | 2018-08-26 09:04 | POSTOPPROG ---
Post Op Note Date of Operation: 08/26/18 Surgeon: Concha Vann Anesthesiologist: Lm Bianchi MD Anesthesia: LMA Pre-op Diagnosis: PMB thick endometrium Post-op Diagnosis: fibroid Indication: same Procedure: H/S myomectomy Findings: multiple uterine fibroids Inf/Abcess present in the surg proc area at time of surgery?: No Depth: Superfical (Skin SQ) EBL: Minimal
[2018-08-26 09:40] VITALS: BP 131/57
--- NOTE | 2018-08-26 14:56 | GOP ---
DATE OF OPERATION: 08/26/2018 SURGEON: Concha Vann MD ANESTHESIA: General with LMA. ANESTHESIOLOGIST: Lm Bianchi MD PREOPERATIVE DIAGNOSIS: Prolonged postmenopausal bleeding with an endometrial mass noted on ultrasou nd and uterus that has multiple intramural fibroids. POSTOPERATIVE DIAGNOSIS: Submucosal fibroid. PROCEDURE PERFORMED: Hysteroscopic myomectomy. FINDINGS: 1. She had a very narrow vaginal opening. 2. She had a very stenotic cervix that was difficult to dilate with a very anteverted uterus. 3. There were multiple submucosal fibroids pushing into the endometrium, and otherwise enlarged uter us. ESTIMATED BLOOD LOSS: Minimal. INDICATIONS: Patient is a 62-year-old who states she has never really stopped having vaginal bleedin g and never went through a phase of menopause, and has continued to have irregular bleeding at this p oint. An endometrial biopsy done in March 2018, showed retrogressive cystic change and no abnormality . Because the patient has had continued bleeding, ultrasound was done and this showed a 3.8 cm endom etrium. Recommend evaluation and resection of this endometrial mass. DESCRIPTION OF PROCEDURE: With informed consent signed, patient was taken to the operating room, [facility] under general anesthesia, placed in the low dorsal lithotomy position, prepped and draped in the usual sterile fashion. Bladder previously emptied. Initially all the speculums in the operating room were too wide to be inserted into the vaginal canal due to the very narrow introitus. Eventually, I was able to get a long Francine speculum and that w as placed. Once visualization of the cervix was done, tenaculum placed on the anterior lip of the ce rvix. The cervix was very stenotic. It took some time with dilation. It probably took about 10 min utes to dilate the cervix as 1) it was very stenotic and 2) the uterus was extremely anteverted. Once I was able to dilate up to 6 mm, Hysteroscope placed using normal saline as a filling medium, an d several endometrial masses noted. [employer] Truclear rotary blade was placed into the uteri ne cavity and resection of the masses done without complication. Once it was felt everything had been removed, the hysteroscope removed, and the cervix has some mild bleeding, but was mostly felt to be hemostatic. Pictures were not able to be taken due to just exces sive bleeding of the endometrium. Once it was felt that everything was removed, the hysteroscope rem phyllis and patient placed in supine position. She was awakened in the operating room, taken to the rec overy room in stable condition, tolerated procedure well. Net fluid deficit was 100 cc. COMPLICATIONS: None. COMPLICATIONS: None. Copy requested to: Floresita Melton /[id number]/MODL
== END 2018-08-26 10:10 | disposition home or self-care (01) ==
LOC: FSGY 05:48
PROVIDERS: ATTEND Obstetrics & Gynecology Gynecology
PROC: 0UDB8ZX Extraction of Endometrium, Via Natural or Artificial Opening Endoscopic, Diagnostic (ICD-10-PCS; principal; 2018-08-26 07:15)
DX: D25.9 Leiomyoma of uterus, unspecified (principal); N95.0 Postmenopausal bleeding
CPT/HCPCS: 58558; C1782; J1885; J2250; J2704; J3010